=== PATIENT | female | born 1950 | race Caucasian/White ===

== ENCOUNTER 2019-09-25 09:33 | Day surgery (SDC) | payer OTHER | END 2019-09-25 15:15 | disposition home or self-care (01) | LOC: AMB-ENDOS 09:33 | DX: D12.5 Benign neoplasm of sigmoid colon (principal); K57.32 Diverticulitis of large intestine without perforation or abscess without bleeding; K57.30 Diverticulosis of large intestine without perforation or abscess without bleeding; K64.1 Second degree hemorrhoids ==